=== PATIENT | male | born 1985 ===

== ENCOUNTER 2024-02-10 07:07 | Emergency (ER) | payer OTHER ==
[~2024-02-10] VITALS: Ht 162.6 cm; Wt 68.0 kg
[~2024-02-10 07:07] MED LIST: ALBU90OI INH; AMOX500 PO; BENZ100A PO; CODGUAEL PO; CYCL10 PO; IBUP600 PO; ONDA4 PO; Prednisone10 MG PO; Ultram50 MG PO
[2024-02-10] MEDS ORDERED: Ondansetron HCl 2 MG / ML 2ML Vial IV ONE (07:20)
[2024-02-10] MEDS ORDERED: NS 1,000 ML IV SCH (07:20)
[2024-02-10] MEDS ORDERED: Ketorolac Tromethamine 30mg Vial IV ONE (07:20)
[2024-02-10 07:48] LABS: BASOPHILS ABSOLUTE AUTO 0.03 K/mm3 (0.00-0.23); BASOPHILS PERCENT AUTO 1 % (0-2); EOSINOPHILS ABSOLUTE AUTO 0.07 K/mm3 (0.00-0.68); EOSINOPHILS PERCENT AUTO 1 % (0-6); Hematocrit 38.1 % (37.0-53.0); IMMATURE GRAN ABSOLUTE AUTO 0.03 K/mm3 (0.00-0.10); IMMATURE GRAN PERCENT AUTO 1 % (0-1); LYMPHOCYTES PERCENT AUTO 23 % (21-46); MONOCYTES ABSOLUTE AUTO 0.44 K/mm3 (0.16-1.47); MONOCYTES PERCENT AUTO 7 % (4-13); Mean Corpuscular HGB 30.8 pg (26.0-34.0); Mean Corpuscular HGB Conc 34.1 g/dL (31.5-36.5); Mean Corpuscular Volume 90 fL (80-100); Mean Platelet Volume 8.6 fL (9.1-12.4); NEUTROPHILS ABSOLUTE AUTO 4.38 K/mm3 (1.96-9.15); NEUTROPHILS PERCENT AUTO 68 % (41-73); Platelet Count 303 K/mm3 (150-400); RDW Coefficient Variation 11.9 % (11.7-14.2); Red Blood Cell Count 4.22 M/mm3 (4.30-5.90); White Blood Cell Count 6.45 K/mm3 (4.00-11.30)
[2024-02-10 08:07] LABS: Albumin, Blood 3.6 g/dL (3.4-5.0); Albumin/Globulin Ratio 1.1 (0.8-1.8); Bilirubin, Total 0.2 mg/dL (0.1-1.0); Creatinine, Blood 0.77 mg/dL (0.60-1.20); Globulin, Blood 3.4 g/dL (2.2-4.0); Potassium, Blood 4.1 mmol/L (3.5-5.5)
[2024-02-10 08:28] LABS: Influenza A, PCR NEGATIVE (NEGATIVE); Influenza B, PCR NEGATIVE (NEGATIVE); Resp Syncytial Virus, PCR NEGATIVE (NEGATIVE); SARS-Cov-2 (COVID-19) PCR, MMC NEGATIVE (NEGATIVE)
[2024-02-10] MEDS ORDERED: IBUP800 PO (09:40)
[2024-02-10] MEDS ORDERED: HYDROcodone 5-APAP 325 TAB PO ONE (09:40)
[2024-02-10] MEDS ORDERED: PROM25 PO (09:40)
[2024-02-10 09:49] VITALS: BP 122/75
== END 2024-02-10 09:52 | disposition home or self-care (01) ==
LOC: ER 07:07
PROVIDERS: Emergency Medicine
DX: B34.9 Viral infection, unspecified (principal); Z79.52 Long term (current) use of systemic steroids
CPT/HCPCS: 0241U; 71045; 80053; 83690; 85025; 93005; 93010; 96361; 96374; 96375; 99285-25; A9270; J1885; J2405; J7030

== ENCOUNTER 2024-03-02 22:18 | Emergency (ER) | payer OTHER ==
[~2024-03-02] VITALS: Ht 162.6 cm; Wt 65.8 kg
[~2024-03-02 22:18] MED LIST changes: +IBUP800 PO; +PROM25 PO
[2024-03-02] MEDS ORDERED: Ketorolac Tromethamine 15mg Vial IV ONE (23:10)
[2024-03-02] MEDS ORDERED: Ondansetron HCl 2 MG / ML 2ML Vial IV ONE (23:30)
[2024-03-02] MEDS ORDERED: Morphine Sulfate 4 MG/1 ML Injection IV ONE (23:30)
[2024-03-02 23:33] LABS: BASOPHILS ABSOLUTE AUTO 0.03 K/mm3 (0.00-0.23); BASOPHILS PERCENT AUTO 1 % (0-2); EOSINOPHILS ABSOLUTE AUTO 0.05 K/mm3 (0.00-0.68); EOSINOPHILS PERCENT AUTO 1 % (0-6); Hemoglobin 12.6 g/dL (13.5-17.5); IMMATURE GRAN ABSOLUTE AUTO 0.01 K/mm3 (0.00-0.10); IMMATURE GRAN PERCENT AUTO 0 % (0-1); LYMPHOCYTES ABSOLUTE AUTO 1.22 K/mm3 (0.84-5.20); LYMPHOCYTES PERCENT AUTO 23 % (21-46); MONOCYTES ABSOLUTE AUTO 0.43 K/mm3 (0.16-1.47); MONOCYTES PERCENT AUTO 8 % (4-13); Mean Corpuscular HGB 30.6 pg (26.0-34.0); Mean Corpuscular HGB Conc 34.1 g/dL (31.5-36.5); Mean Corpuscular Volume 90 fL (80-100); Mean Platelet Volume 8.6 fL (9.1-12.4); NEUTROPHILS ABSOLUTE AUTO 3.67 K/mm3 (1.96-9.15); NEUTROPHILS PERCENT AUTO 68 % (41-73); Platelet Count 316 K/mm3 (150-400); RDW Coefficient Variation 11.9 % (11.7-14.2); RDW Standard Deviation 39.1 fL (35.1-46.3); Red Blood Cell Count 4.12 M/mm3 (4.30-5.90); White Blood Cell Count 5.41 K/mm3 (4.00-11.30)
[2024-03-02 23:52] LABS: Albumin, Blood 4.2 g/dL (3.4-5.0); Albumin/Globulin Ratio 1.4 (0.8-1.8); Bilirubin, Total 0.2 mg/dL (0.1-1.0); Bun/Creatinine Ratio 16.9 (12.0-20.0); Calcium, Blood 9.5 mg/dL (8.5-10.1); Creatinine, Blood 0.83 mg/dL (0.60-1.20); Globulin, Blood 3.1 g/dL (2.2-4.0); Potassium, Blood 4.1 mmol/L (3.5-5.5); Total Protein, Blood 7.3 g/dL (6.4-8.2)
[2024-03-03] VITALS: BP 128/78
[2024-03-03 01:15] LABS: Source, Urine Clean Catch
[2024-03-03 01:17] LABS: Bilirubin, Urine Neg (Neg); Blood, Urine Neg (Neg); Glucose Qualitative, Urine Neg (Neg); Ketones, Urine Neg (Neg); Leukocyte Esterase, Urine Neg (Neg); Nitrite, Urine Neg (Neg); Protein, Urine Neg (Neg); Urobilinogen, Urine NORM (Normal)
[2024-03-03 01:39] LABS: Appearance, Urine Clear (Clear); Color, Urine Pale Yellow (P-Yellow)
== END 2024-03-03 02:52 | disposition left against medical advice (07) ==
LOC: ER 22:18
PROVIDERS: Emergency Medicine; Student in an Organized Health Care Education/Training Program
DX: R10.31 Right lower quadrant pain (principal); N50.811 Right testicular pain; N43.3 Hydrocele, unspecified; I10 Essential (primary) hypertension; Z53.29 Procedure and treatment not carried out because of patient's decision for other reasons
CPT/HCPCS: 74177; 76870; 80053; 81003; 83690; 85025; 96374-59; 96375; 99284-25; J2270; J2405; Q9967

== ENCOUNTER 2024-09-06 09:57 | Day surgery (SDC) | payer OTHER ==
[~2024-09-06] VITALS: Ht 165.1 cm; Wt 75.1 kg
[~2024-09-06 09:57] MED LIST changes: +Dexamethasone Sod Phos 10 MG/ML 1ML VIAL ONE; +EPINEPhrine HCl 1 MG / ML 30ML Vial ONE; +FentaNYL Citrate 50 MCG/ML 2 ML Injection ONE; +Lactated Ringer's 1,000 ML IV ONE; +Lidocaine 2%-Epineph 1:200000 20 ML SDV ONE; +Ondansetron HCl 2 MG / ML 2ML Vial ONE; +Rocuronium Bromide 10 MG/ML 5ML Injection IV ONE; +Sugammadex Sodium 200 MG/2ML SDV (100 MG/ML) ONE; +propofoL 20 ML IV ONE
[2024-09-06] MEDS ORDERED: Tranexamic Acid 100 ML IV ONE (10:13)
[2024-09-06] MEDS ORDERED: Midazolam HCl 1MG / ML 2ML Vial ONE (10:22)
[2024-09-06] MEDS ORDERED: PROPRANOLOL 40 MG PO (10:23)
[2024-09-06] MEDS ORDERED: Lactated Ringer's 1,000 ML IV ONE (10:24)
[2024-09-06] MEDS ORDERED: Phenylephrine HCl 100 MCG/ML-NS 10MLSYR (1MG/10ML) ONE (11:24)
[2024-09-06 12:16] VITALS: BP 110/79
[2024-09-06] MEDS ORDERED: OxyCODONE HCL 5 MG TAB ONE (12:57)
--- NOTE | 2024-09-06 12:57 | NUR ---
09/06/24 Violet Flores PT ABLE TO TOLERATE FOODS AND FLUIDS. PT C/O PAIN TO NOSE. WILL ADMINISTER OXYCODONE 5MG ONCE HE EATS SOME APPLESAUCE. PT HAD 2 POPSICLES. TM.
== END 2024-09-06 13:15 | disposition home or self-care (01) ==
LOC: ORSCSDS 09:57
PROVIDERS: Otolaryngology
PROC: 09BM0ZZ Excision of Nasal Septum, Open Approach (ICD-10-PCS; principal; 2024-09-06 12:30)
PROC: 09SL0ZZ Reposition Nasal Turbinate, Open Approach (ICD-10-PCS; principal; 2024-09-06 12:30)
DX: J34.2 Deviated nasal septum (principal); J34.3 Hypertrophy of nasal turbinates; J45.909 Unspecified asthma, uncomplicated; K21.9 Gastro-esophageal reflux disease without esophagitis; Z79.899 Other long term (current) drug therapy
CPT/HCPCS: A9270; J0171; J1100; J2250; J2371; J2405; J2704; J3010; J7120

== ENCOUNTER 2024-09-08 09:09 | Emergency (ER) | payer OTHER ==
[~2024-09-08] VITALS: Ht 165.1 cm; Wt 72.6 kg
[~2024-09-08 09:09] MED LIST changes: -Dexamethasone Sod Phos 10 MG/ML 1ML VIAL ONE; -EPINEPhrine HCl 1 MG / ML 30ML Vial ONE; -FentaNYL Citrate 50 MCG/ML 2 ML Injection ONE; -Lactated Ringer's 1,000 ML IV ONE; -Lidocaine 2%-Epineph 1:200000 20 ML SDV ONE; -Ondansetron HCl 2 MG / ML 2ML Vial ONE; +PROPRANOLOL 40 MG PO; -Rocuronium Bromide 10 MG/ML 5ML Injection IV ONE; -Sugammadex Sodium 200 MG/2ML SDV (100 MG/ML) ONE; -propofoL 20 ML IV ONE
[2024-09-08 11:48] LABS: BASOPHILS ABSOLUTE AUTO 0.08 K/mm3 (0.00-0.23); BASOPHILS PERCENT AUTO 1 % (0-2); EOSINOPHILS ABSOLUTE AUTO 0.09 K/mm3 (0.00-0.68); EOSINOPHILS PERCENT AUTO 1 % (0-6); Hematocrit 39.6 % (37.0-53.0); Hemoglobin 13.1 g/dL (13.5-17.5); IMMATURE GRAN ABSOLUTE AUTO 0.05 K/mm3 (0.00-0.10); IMMATURE GRAN PERCENT AUTO 0 % (0-1); LYMPHOCYTES ABSOLUTE AUTO 2.79 K/mm3 (0.84-5.20); LYMPHOCYTES PERCENT AUTO 25 % (21-46); MONOCYTES ABSOLUTE AUTO 0.86 K/mm3 (0.16-1.47); MONOCYTES PERCENT AUTO 8 % (4-13); Mean Corpuscular HGB 30.1 pg (26.0-34.0); Mean Corpuscular HGB Conc 33.1 g/dL (31.5-36.5); Mean Corpuscular Volume 91 fL (80-100); Mean Platelet Volume 8.4 fL (9.1-12.4); NEUTROPHILS PERCENT AUTO 65 % (41-73); Platelet Count 373 K/mm3 (150-400); RDW Coefficient Variation 12.2 % (11.7-14.2); RDW Standard Deviation 40.6 fL (35.1-46.3); Red Blood Cell Count 4.35 M/mm3 (4.30-5.90); White Blood Cell Count 11.17 K/mm3 (4.00-11.30)
[2024-09-08] MEDS ORDERED: Inderal40 MG PO (11:51)
[2024-09-08] MEDS ORDERED: Ondansetron 4 MG TAB PO ONE (12:05)
[2024-09-08 12:20] LABS: Albumin, Blood 3.6 g/dL (3.4-5.0); Albumin/Globulin Ratio 0.9 (0.8-1.8); Bilirubin, Total 0.3 mg/dL (0.1-1.0); Bun/Creatinine Ratio 17.2 (12.0-20.0); Calcium, Blood 8.6 mg/dL (8.5-10.1); Creatinine, Blood 0.93 mg/dL (0.60-1.20); Globulin, Blood 3.9 g/dL (2.2-4.0); Potassium, Blood 4.4 mmol/L (3.5-5.5); Total Protein, Blood 7.5 g/dL (6.4-8.2)
[2024-09-08] MEDS ORDERED: Prochlorperazine Edisylate 10 mg Vial IV ONE (12:45)
[2024-09-08] MEDS ORDERED: DiphenhydrAMINE HCl 50 MG/ML 1ML Vial IV ONE (12:45)
[2024-09-08] MEDS ORDERED: Ibuprofen 600 MG Tab PO ONE (12:45)
[2024-09-08 13:00] VITALS: BP 110/75
== END 2024-09-08 13:17 | disposition home or self-care (01) ==
LOC: ER 09:09
PROVIDERS: Student in an Organized Health Care Education/Training Program
DX: G43.909 Migraine, unspecified, not intractable, without status migrainosus (principal); I95.89 Other hypotension; I25.2 Old myocardial infarction; Z98.890 Other specified postprocedural states; Z79.899 Other long term (current) drug therapy
CPT/HCPCS: 80053; 83605; 84484; 85025; 93005; 93010; 99284-25; A9270; J1200

== ENCOUNTER 2025-02-09 22:31 | Emergency (ER) | payer OTHER ==
[~2025-02-09] VITALS: Ht 165.1 cm; Wt 75.8 kg
[~2025-02-09 22:31] MED LIST changes: +Inderal40 MG PO
[2025-02-09 23:06] VITALS: BP 120/86
[2025-02-09 23:47] LABS: BASOPHILS ABSOLUTE AUTO 0.05 K/mm3 (0.00-0.23); BASOPHILS PERCENT AUTO 1 % (0-2); EOSINOPHILS ABSOLUTE AUTO 0.11 K/mm3 (0.00-0.68); EOSINOPHILS PERCENT AUTO 2 % (0-6); Hematocrit 40.1 % (37.0-53.0); Hemoglobin 13.8 g/dL (13.5-17.5); IMMATURE GRAN ABSOLUTE AUTO 0.01 K/mm3 (0.00-0.10); IMMATURE GRAN PERCENT AUTO 0 % (0-1); LYMPHOCYTES ABSOLUTE AUTO 2.09 K/mm3 (0.84-5.20); LYMPHOCYTES PERCENT AUTO 35 % (21-46); MONOCYTES ABSOLUTE AUTO 0.46 K/mm3 (0.16-1.47); MONOCYTES PERCENT AUTO 8 % (4-13); Mean Corpuscular HGB Conc 34.4 g/dL (31.5-36.5); Mean Corpuscular Volume 87 fL (80-100); NEUTROPHILS ABSOLUTE AUTO 3.34 K/mm3 (1.96-9.15); NEUTROPHILS PERCENT AUTO 55 % (41-73); NRBC ABSOLUTE 0.00 K/mm3 (0.00-0.02); NRBC Auto 0.0 /100 WBC (0.0-0.2); Platelet Count 373 K/mm3 (150-400); RDW Coefficient Variation 11.9 % (11.7-14.2); RDW Standard Deviation 38.1 fL (35.1-46.3)
[2025-02-10 00:12] LABS: Alanine Aminotransfer (ALT/SGP 26.0 U/L (12-78); Albumin, Blood 3.9 g/dL (3.4-5.0); Albumin/Globulin Ratio 1.1 (0.8-1.8); Anion Gap 10.0 mmol/L (3-11); Aspartate Aminotrans (AST/SGOT 18.0 U/L (12-37); Bilirubin, Total 0.3 mg/dL (0.1-1.0); Blood Urea Nitrogen 14.0 mg/dL (8-24); CO2, Blood 27.0 mmol/L (21-32); Calcium, Blood 8.8 mg/dL (8.5-10.1); Chloride, Blood 104.0 mmol/L (98-108); Creatinine, Blood 0.8 mg/dL (0.60-1.20); Globulin, Blood 3.4 g/dL (2.2-4.0); Glucose, Blood 118.0 mg/dL (70-99); Potassium, Blood 3.8 mmol/L (3.5-5.5); Sodium, Blood 137.0 mmol/L (136-145); Total Protein, Blood 7.3 g/dL (6.4-8.2)
[2025-02-10] MEDS ORDERED: ONDA4ODT MM (01:18)
== END 2025-02-10 01:18 | disposition home or self-care (01) ==
LOC: ER 22:31
PROVIDERS: Student in an Organized Health Care Education/Training Program
DX: J02.9 Acute pharyngitis, unspecified (principal)
CPT/HCPCS: 71046; 80053; 83690; 84484; 85025; 93005; 93010; 99283-25